=== PATIENT | male | born 1985 | race American Indian/Alaskan Native ===

== ENCOUNTER 2016-10-02 16:44 | Emergency (ER) | payer OTHER ==
[2016-10-02 22:20] LABS: Basophils % (Auto) 0.8 % (0.0-1.8); Eosinophils % (Auto) 0.9 % (0.0-4.3); Hematocrit 35.8 % (35.5-45.6); Hemoglobin 11.2 gm/dl (11.8-15.2); Mean Corpuscular HGB Conc 31 % (32-34); Mean Corpuscular Volume 71 fl (84-94); Platelet Count 325 K/mm3 (140-440); Red Blood Count 5.01 M/mm3 (3.65-5.03); Red Cell Distribution Width 16.6 % (13.2-15.2)
[2016-10-02 22:24] LABS: Mean Corpuscular Hemoglobin 22 pg (28-32)
[2016-10-02 22:35] LABS: INR 0.99 (0.87-1.13)
[2016-10-02 22:36] LABS: Partial Thromboplastin Time 27.2 Sec. (24.2-36.6)
[2016-10-02 23:01] LABS: Alanine Aminotransferase 33 units/L (7-56); Albumin 4.5 g/dL (3.9-5); Albumin/Globulin Ratio 1.7 %; Alkaline Phosphatase 98 units/L (35-129); Anion Gap 19 mmol/L; BUN/Creatinine Ratio 16.25; Bilirubin,Total 0.2 mg/dL (0.1-1.2); Blood Urea Nitrogen 13 mg/dL (9-20); Calcium 8.7 mg/dL (8.4-10.2); Carbon Dioxide 23 mmol/L (22-30); Glucose 94 mg/dL (75-100); Potassium 3.6 mmol/L (3.6-5.0); Sodium 142 mmol/L (137-145); Total Protein 7.1 g/dL (6.3-8.2)
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
[2016-10-02 23:59] VITALS: BP 141/92
== END 2016-10-03 | disposition home or self-care (01) ==
LOC: ED 16:44
DX: M79.651 Pain in right thigh (principal); F17.200 Nicotine dependence, unspecified, uncomplicated; Z86.711 Personal history of pulmonary embolism; Z79.01 Long term (current) use of anticoagulants; Z87.828 Personal history of other (healed) physical injury and trauma
CPT/HCPCS: 36415; 80053; 85025; 85610; 85730; 99283